=== PATIENT | female | born 1985 ===

== ENCOUNTER 2023-09-13 09:43 | Outpatient (AMB) | payer OTHER, SELFPAY ==
--- NOTE | 2023-09-13 09:54 | MHC.OFFVIS ---
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 Occupational Rehabilitation Aide: Occupational Rehabilitation Aide Present (Sonya) Allergies budesonide [From Symbicort] Allergy (Severe, Verified 09/13/23 10:04) Anaphylaxis formoterol [From Symbicort] Allergy (Severe, Verified 09/13/23 10:04) Anaphylaxis mold Allergy (Severe, Verified 09/13/23 10:04) Hives mushroom Allergy (Severe, Verified 09/13/23 10:04) Unknown umeclidinium [From Incruse Ellipta] Allergy (Severe, Verified 09/13/23 10:09) Unknown food allergies Allergy (Severe, Uncoded 09/13/23 10:04) Unknown COLD - ARTICARIA Allergy (Unknown, Uncoded 09/13/23 10:04) Unknown DUST Allergy (Unknown, Uncoded 06/24/20 19:05) SNEEZING - ASTHMA Medication List - Last Reconciled 09/13/23 by Anh Portillo CNM albuterol sulfate 90 mcg/actuation (Ventolin HFA) inhalation cetirizine 10 mg PO DAILY cholecalciferol (vitamin D3) 125 mcg PO DAILY dupilumab (Dupixent) mg subcut ketoconazole 2% appl topical DAILY L norgest/e.estradiol-e.estrad 0.1 mg-20 mcg (84)/10 mcg (7) PO montelukast 10 mg PO DAILY tizanidine 4 mg PO BID tramadol 50 mg PO TID PRN HPI HPI Comments History of Present Illness Details She is a premenopausal woman presenting for annual examination. Taj present for her exam today. Doing well with no concerns: never had pap due to pelvic injury in 1999. She has had surgery for SI joint stabilization on her left side in his possibly having the right side completed. She is unable to be intimate with her . She tries to eat healthy and stays active as possible with exercise, limited with injuries. Hx of PCOS, does not bleed on her own, doing well on OCP's. She reports painful menses and prefers to have none. Currently is not sexually active. She denies vaginal itching and irritation. STI screening offered; she declines. Denies family history of breast, ovarian or colon cancer. She denies any contraindications to control such as: migraines with aura, history of DVT or pulmonary emboli, high blood pressure, liver disease, thrombolic disorders, Lupus, +ELANA, breast cancer, or smoking. [facility] Medical History (Updated 09/13/23 @ 11:00 by JOSE Velazquez) Hyperlipidemia History of back pain Vitamin D deficiency Asthma PCOS (polycystic ovarian syndrome) Surgical History S/P fusion of sacroiliac joint Hx of tonsillectomy Hx of bilateral breast reduction surgery Family History (Updated 09/13/23 @ 10:59 by JOSE Velazquez) Mother Diabetes mellitus Hyperlipidemia Father Diabetes mellitus Hyperlipidemia Paternal Grandfather Diabetes mellitus Paternal Grandmother Diabetes mellitus Social History Alcohol intake: current Alcohol intake frequency: does not drink Patient Tobacco Use Status: Never used Tobacco Sexual orientation: Straight/Heterosexual Gender identity: Female Female Reproductive History Menstrual Age of Menarche: 12 Duration of menses: 3-5 days Date of last menstrual period: 09/01/23 control method: pills Total pregnancies: 0 Review of Systems Const All systems reviewed & are unremarkable except as noted in HPI and below Reports as per HPI Eyes Reports no additional complaints ENT Reports no additional complaints Card Reports no additional complaints Resp Reports no additional complaints GI Reports as per HPI and Reports no additional complaints Reports as per HPI Musc Reports no additional complaints Skin/Breast Reports as per HPI Neuro Reports no additional complaints Psych Reports no additional complaints Endo Reports no additional complaints Kevan/Lymph Reports no additional complaints Aller/Immun Reports no additional complaints Physical Exam Vital Signs: Last Vital Signs BP 110/72 09/13/23 09:55 BMI result Body Mass Index 36.8 Const General: cooperative, healthy appearing, no acute distress, well developed and alert Orientation/consciousness: patient oriented x3 HEENT Head: Yes normal to inspection Eyes General: appearance normal, both eyes and all related structures Neck Neck: Yes normal visual inspection Thyroid: Thyroid normal Chest Chest palpation & inspection: normal inspection of the chest and other (no puckering, dimpling, peau de orange, retraction, discharge, masses) Breast/axilla inspection: normal inspection of the breasts Breast/axilla palpation: normal palpation of the breasts Resp Effort & Inspection: normal respiratory effort GI Inspection: Yes normal to inspection Palpation (GI): Soft to palpation Rectal Exam - Female: deferred Other: Very tender with exam. Utilize the smallest Tabatha speculum. General: Yes bladder normal to palpation External Female Exam: normal external appearance and normal appearance of the urethra Speculum Exam - Vagina: normal appearance of the vagina, normal palpation and normal vaginal discharge Speculum Exam - Cervix: normal appearance of the cervix, normal palpation and Other cervical findings present (Bled with the Pap) Bimanual exam- vagina & uterus: normal bimanual exam, normal palpation, uterine size normal, bladder normal to palpation, normal palpation and non-tender Bimanual Exam- Adnexa, other: no masses Skin General skin exam: no rashes or lesions noted Rashes: no rashes Neuro General: patient oriented x3 Cognition (Neuro): normal cognition Extrem General: Yes normal to inspection Psych Attitude: cooperative Thought process: Normal thought process present Assessment & Plan Assessment & Plan (1) Encounter for well woman exam with routine gynecological exam: Code(s): Z01.419 - Encounter for gynecological examination (general) (routine) without abnormal findings Plan Discussed: Current recommendations for pap smears per ASCCP guidelines. Breast awareness and periodic breast exams. Maintain a healthy lifestyle including a well balanced diet and routine exercise. Encouraged to discuss with her surgeon possibility of doing pelvic floor therapy if cleared, she can reach out to our department for referral down stairs. Discussed control interested in continuous cycling Rx to be sent in to take continuously for the next year. If any issues or concerns with this adjustment to return to the office for further evaluation and consideration of other options. control hormone use warnings: go to ER if and loss of vision, blindness, severe headache, chest pain or difficulty breathing, severe abdominal pain, or any pain or swelling in an extremity. All of her questions and concerns were addressed to the best of my ability. RTO in one year for annual venetian blind washer examination. Orders: Orders Pap Smear Today Z01.419 - Encounter for gynecological examination (general) (routine) without abnormal findings Medications: New levonorgestrel-ethinyl estrad 0.1-20 mg-mcg (Sronyx) Take continuously, skip the placebo pills 1 tab PO DAILY 84 tabs 4RF Coding Level of Care Code New Pt Prev Care 18-39yr([id number] Diagnoses Encounter for well woman exam with routine gynecological exam Z01.419
[2023-09-13 09:55] VITALS: BP 110/72; BMI 36.8
== END 2023-09-13 11:09 | disposition home or self-care (01) ==
PROVIDERS: PCP Family Medicine Geriatric Medicine; Visit Provider Advanced Practice Midwife
DX: Z01.419 Encounter for gynecological examination (general) (routine) without abnormal findings (principal)
CPT/HCPCS: 99385

== ENCOUNTER 2023-09-13 09:43 | Outpatient (REF) | payer OTHER, SELFPAY ==
[2023-09-17 22:39] LABS: HPV mRNA E6/E7 rflx Not Detected (Not Detected)
== END 2023-09-13 09:44 | disposition home or self-care (01) ==
LOC: HO.LNP 09:43
PROVIDERS: PCP Family Medicine Geriatric Medicine; Visit Provider Advanced Practice Midwife
DX: Z01.419 Encounter for gynecological examination (general) (routine) without abnormal findings (principal); Z11.51 Encounter for screening for human papillomavirus (HPV)
CPT/HCPCS: 87624; 88142

== ENCOUNTER 2023-11-15 12:38 | Outpatient (REF) | payer OTHER, SELFPAY ==
--- NOTE | ~2023-11-15 | XR_ITS ---
EXAMINATION: XR CHEST 2 VIEWS CLINICAL INFORMATION: Preoperative examination. COMPARISON: None. TECHNIQUE: Frontal and lateral views of the chest were obtained. FINDINGS: The heart, great vessels, pulmonary vasculature and mediastinum are normal. The lungs show no focal infiltrate, effusion or pneumothorax. There is no acute osseous abnormality. XR/XR chest 2V IMPRESSION: No active cardiopulmonary disease.
[2023-11-15 13:06] LABS: Basophils Percent Auto 0.4 % (0-2); Eosinophils Absolute Auto 0.2 X10*3/uL (0.0-0.4); Eosinophils Percent Auto 1.7 % (0-4); Hemoglobin 12.1 g/dl (12.0-16.0); Imm Gran Abs Auto 0.03 X10*3/uL (0.00-0.03); Imm Gran Pct Auto 0.3 % (0.0-0.4); Lymphocytes Absolute Auto 2.2 X10*3/uL (1.2-4.9); MANUAL DIFF FLAG NO; Mean Corpuscular HGB Conc 31.8 g/dl (31.0-35.0); Mean Corpuscular Hemoglobin 28.4 pg (27.0-33.0); Mean Corpuscular Volume 89.2 fL (80.0-98.0); Mean Platelet Volume 8.9 fL (9.4-12.3); Monocytes Absolute Auto 0.5 X10*3/uL (0.1-1.2); Monocytes Percent Auto 4.9 % (2-11); Neutrophils Absolute Auto 7.1 x10*3/uL (2.0-8.3); Neutrophils Percent Auto 70.7 % (45-73); Platelet Count 455 X10*3/uL (160-400); Red Blood Count 4.26 X10*6/uL (4.20-5.50); Red Cell Distribution Width 12.5 % (11.0-16.0)
[2023-11-15 13:11] LABS: Prothrombin Time 12.6 SEC (11.1-13.3)
[2023-11-15 13:26] LABS: Anion Gap 13 (12-20); Blood Urea Nitrogen 9 mg/dL (9-16); Calcium 9.7 mg/dL (8.4-10.2); Carbon Dioxide 22 mmol/L (22-29); Chloride 108 mmol/L (96-108); Estimated Glomerular Filt Rate > 60; Glucose Random 92 mg/dL (60-115); Potassium 4.2 mmol/L (3.3-5.1); Sodium 139 mmol/L (135-145)
== END 2023-11-15 12:39 | disposition home or self-care (01) ==
LOC: HO.LAB 12:38
PROVIDERS: PCP Internal Medicine; Visit Provider Internal Medicine
DX: Z01.818 Encounter for other preprocedural examination (principal); R53.83 Other fatigue
CPT/HCPCS: 36415; 71046; 80048; 85025; 85610; 86850; 86900; 86901

== ENCOUNTER 2024-03-26 07:37 | Outpatient (REF) | payer OTHER, SELFPAY ==
[2024-03-26 10:12] LABS: Hematocrit 36.7 % (37.0-47.0); Hemoglobin 11.6 g/dl (12.0-16.0); Mean Corpuscular HGB Conc 31.6 g/dl (31.0-35.0); Mean Corpuscular Hemoglobin 28.9 pg (27.0-33.0); Mean Corpuscular Volume 91.3 fL (80.0-98.0); Mean Platelet Volume 9.2 fL (9.4-12.3); Platelet Count 444 X10*3/uL (160-400); Red Blood Count 4.02 X10*6/uL (4.20-5.50); Red Cell Distribution Width 12.4 % (11.0-16.0); White Blood Count 10.9 X10*3/uL (4.8-10.8)
[2024-03-26 11:21] LABS: Thyroid Stimulating Hormone 2.06 uIU/mL (0.32-4.0)
== END 2024-03-26 07:38 | disposition home or self-care (01) ==
LOC: HO.LAB 07:37
PROVIDERS: PCP Internal Medicine; Visit Provider Advanced Practice Midwife
DX: N92.1 Excessive and frequent menstruation with irregular cycle (principal); Z32.02 Encounter for pregnancy test, result negative
CPT/HCPCS: 36415; 81025; 84443; 85027; 99212

== ENCOUNTER 2024-03-26 07:37 | Outpatient (AMB) | payer OTHER, SELFPAY ==
--- NOTE | 2024-03-26 07:43 | MHC.OFFVIS ---
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 Allergies budesonide [From Symbicort] Allergy (Severe, Verified 09/13/23 10:04) Anaphylaxis formoterol [From Symbicort] Allergy (Severe, Verified 09/13/23 10:04) Anaphylaxis mold Allergy (Severe, Verified 09/13/23 10:04) Hives mushroom Allergy (Severe, Verified 09/13/23 10:04) Unknown umeclidinium [From Incruse Ellipta] Allergy (Severe, Verified 09/13/23 10:09) Unknown food allergies Allergy (Severe, Uncoded 09/13/23 10:04) Unknown COLD - ARTICARIA Allergy (Unknown, Uncoded 09/13/23 10:04) Unknown DUST Allergy (Unknown, Uncoded 06/24/20 19:05) SNEEZING - ASTHMA Is last menstrual period known: Yes HPI Comments Details: Patient is here today for a follow up on her pill check, accompanied by her Taj. She reports breakthrough bleeding mostly spotting with the onset of use, she desires to go back onto the other brand pill that she was using. Bleeding increased last Sunday, changing 4-5 pads a day, admits to cramping, feeling exhausted, sleeping approximately 4 hours a night. She reports [id number] Advils (2 tabs) do not help with her pain, nor does the Tramadol prescription which only helps her back pain. She also feels the control is different than the last prescription, side effects include anxiety, lightheadedness, and weight gain-9 lb. She is concerned that she gained 3 lb this week despite not eating well and bleeding. She admits to feeling stressed due to her mother just coming home on Sunday from the hospital and caretaking concerns for her as she lives in her home. She reports more fatigue than usual on Sunday. Hydrate approximately 24 oz of water, Pepsi, and other fluids during the day. She has a history of spinal fusion done in November and was just recently medically cleared. She has a history of pelvic trauma and difficulties with examinations. Hemoglobin 12.1 on 11/15/2023, no TSH levels available. Primary care doctor Caro, distributor cleaner Dr. Arana at [facility]. Declines physical exam today. COUNTS INCLUDE 234 BEDS AT THE [facility] Medical History (Updated 03/26/24 @ 09:08 by Anh Portillo CNM) Breakthrough bleeding on control pills Hyperlipidemia History of back pain Vitamin D deficiency Asthma PCOS (polycystic ovarian syndrome) Surgical History (Updated 03/26/24 @ 08:19 by Anh Portillo CNM) S/P fusion of sacroiliac joint Hx of tonsillectomy Hx of bilateral breast reduction surgery Family History (Updated 09/13/23 @ 10:59 by Kandice Day [facility]) Mother Diabetes mellitus Hyperlipidemia Father Diabetes mellitus Hyperlipidemia Paternal Grandfather Diabetes mellitus Paternal Grandmother Diabetes mellitus Social History Alcohol intake: current Alcohol intake frequency: does not drink Patient Tobacco Use Status: Never used Tobacco Sexual orientation: Straight/Heterosexual Gender identity: Female Female Reproductive History Menstrual Age of Menarche: 12 Review of Systems Const All systems reviewed & are unremarkable except as noted in HPI and below Endo Reports no additional complaints Physical Exam Vital Signs: Last Vital Signs BP 102/66 03/26/24 07:56 Const General: cooperative, healthy appearing and no acute distress Psych Appearance: well kempt Attitude: cooperative Thought process: Normal thought process present Results AMB Test Urine AMB Test Urine Negative Last Edit by Brittanie Donis on 03/26/24 09:37 Assessment & Plan Assessment & Plan (1) Breakthrough bleeding on control pills: Code(s): N92.1 - Excessive and frequent menstruation with irregular cycle Plan Discussed: Obtaining current CBC and TSH today. She is going to check in with the pharmacy and see what company produces the brand of pills that she used previously since the dosing was very similar if not identical but manufactures varied. She agrees to call him with the information so she can just transitioned to the previous brand pill. Plan pill check in 3 months. Encouraged hydration particularly more so with the heat wave this week. All of her questions and concerns were addressed to the best of my ability and shared decision making. She is agreeable to the plan of care. This note is constructed using voice recognition software. While every effort has been made to ensure accuracy, garment inspector errors may have been included. Orders: Orders Thyroid Stimulating Hormone Today N92.0 - Excessive and frequent menstruation with regular cycle, N92.1 - Excessive and frequent menstruation with irregular cycle Complete Blood Count no Diff Today N92.0 - Excessive and frequent menstruation with regular cycle AMB HCG Urine Test Today Z32.02 - Encounter for test, result negative Medications: Discontinued levonorgestrel-ethinyl estrad 0.1-20 mg-mcg (Sronyx) Take continuously, skip the placebo pills Discontinued Reason: Duplicate 1 tab PO DAILY 84 tabs 4RF Coding Level of Care Code Est Pt Level 3 (88634) Diagnoses Breakthrough bleeding on control pills N92.1
[2024-03-26 07:56] VITALS: BP 102/66
== END 2024-03-26 08:37 | disposition home or self-care (01) ==
PROVIDERS: PCP Internal Medicine; Visit Provider Advanced Practice Midwife
DX: Z32.02 Encounter for pregnancy test, result negative (principal); N92.1 Excessive and frequent menstruation with irregular cycle
CPT/HCPCS: 99213

== ENCOUNTER 2024-06-25 07:46 | Outpatient (AMB) | payer OTHER, SELFPAY ==
--- NOTE | 2024-06-25 07:53 | MHC.OFFVIS ---
Vital Signs 06/25/24 07:56 Weight 202 lb BP 100/60 Intake Visit Reasons: 3 month pill check / 45 mins per BM Wood Chopper: Wood Chopper Present Accompanied by: Spouse Allergies budesonide [From Symbicort] Allergy (Severe, Verified 06/25/24 07:54) Anaphylaxis formoterol [From Symbicort] Allergy (Severe, Verified 06/25/24 07:54) Anaphylaxis mold Allergy (Severe, Verified 06/25/24 07:54) Hives mushroom Allergy (Severe, Verified 06/25/24 07:54) Unknown umeclidinium [From Incruse Ellipta] Allergy (Severe, Verified 06/25/24 07:54) Unknown food allergies Allergy (Severe, Uncoded 09/13/23 10:04) Unknown COLD - ARTICARIA Allergy (Unknown, Uncoded 09/13/23 10:04) Unknown DUST Allergy (Unknown, Uncoded 06/24/20 19:05) SNEEZING - ASTHMA Is last menstrual period known: Yes Last menstrual period: 06/20/24 HPI Comments Details: Patient is here for a 3 month follow-up pill check, accompanied by her . She reports her seborrhea dermatitis and cramping with her cycle has improved. Uses Tylenol p.r.n. for cramping, reports she has lost her Tramadol prescription. 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 It was unclear if her cycle quantity had improved. She brought in an old pack of OCPs along with her current pack to compare, and reports the new pack overall is much better than her old dosing-variations in dosing-progesterone in the current pack 0.15 previous pack of 0.1, ethanol estradiol in the current pack of 0 0.03 previous pack was 0.02. Interested in doing pelvic floor physical therapy, history of previous SI joint repair, chronic pain. Seeing an orthopedic surgeon at [facility]- planning [facility] to repair her left hip ligament in September. [facility] Medical History (Updated 06/25/24 @ 08:44 by Anh Portillo CNM) Hyperlipidemia History of back pain Vitamin D deficiency Asthma PCOS (polycystic ovarian syndrome) Surgical History (Updated 03/26/24 @ 08:19 by Anh Portillo CNM) S/P fusion of sacroiliac joint Hx of tonsillectomy Hx of bilateral breast reduction surgery Family History (Updated 09/13/23 @ 10:59 by JOSE Velazquez) Mother Diabetes mellitus Hyperlipidemia Father Diabetes mellitus Hyperlipidemia Paternal Grandfather Diabetes mellitus Paternal Grandmother Diabetes mellitus Social History Alcohol intake: current Alcohol intake frequency: does not drink Patient Tobacco Use Status: Never used Tobacco Sexual orientation: Straight/Heterosexual Gender identity: Female Female Reproductive History Menstrual Age of Menarche: 12 Duration of menses: 6-7 days Date of last menstrual period: 06/20/24 control method: pills Review of Systems Const All systems reviewed & are unremarkable except as noted in HPI and below Endo Reports no additional complaints Physical Exam Vital Signs: Last Vital Signs BP 100/60 06/25/24 07:56 Const General: cooperative, healthy appearing and no acute distress Psych Appearance: well kempt Attitude: cooperative Thought process: Normal thought process present Assessment & Plan Assessment & Plan (1) Surveillance for control, intrauterine device: Code(s): Z30.431 - Encounter for routine checking of intrauterine contraceptive device Plan Discussed: Efficacy, and variations dosing options with generic OCP brands. When switching brands it may take 3-6 months additionally to see improvements with cycle control. Plan is to continue with [facility]presse OCP's. Follow up is scheduled 09/26/2024 for annual exam, plan discussion at that visit for overall cycle control, possibility at that time to consider continuous cycling if indicated. OTC self-help measures for cramping-use of Midol and a heating pad. All of her questions and concerns were addressed to the best of my ability and shared decision making. She is agreeable to the plan of care. This note is constructed using voice recognition software. While every effort has been made to ensure accuracy, floor covering printer errors may have been included. Medications: Refilled L norgest/e.estradiol-e.estrad 0.15 mg-30 mcg (84)/10 mcg (7) 1 tab PO DAILY 84 ea 0RF Coding Level of Care Code Est Pt Level 3 (02035) Diagnoses Surveillance for control, intrauterine device Z30.431
[2024-06-25 07:56] VITALS: BP 100/60
== END 2024-06-25 08:35 | disposition home or self-care (01) ==
LOC: HO.HWS 07:46
PROVIDERS: PCP Internal Medicine; Visit Provider Advanced Practice Midwife
DX: Z30.431 Encounter for routine checking of intrauterine contraceptive device (principal)
CPT/HCPCS: 99213

== ENCOUNTER → 2024-06-25 07:46 | Outpatient (BNVA) | payer OTHER, SELFPAY | PROVIDERS: PCP Internal Medicine; Visit Provider Advanced Practice Midwife | DX: Z30.431 Encounter for routine checking of intrauterine contraceptive device (principal) | CPT/HCPCS: 99212 ==